=== PATIENT | male | born 1990 | race Caucasian/White ===

== ENCOUNTER 2019-03-21 11:51 | Emergency (ER) | payer OTHER ==
[~2019-03-21] VITALS: Ht 170.2 cm; Wt 74.8 kg
[2019-03-21 12:01] VITALS: Ht 170.2 cm; Wt 74.8 kg
[2019-03-21 13:24] VITALS: BP 134/70
== END 2019-03-21 13:24 | disposition home or self-care (01) ==
LOC: ED 11:51
DX: S61.411A Laceration without foreign body of right hand, initial encounter (principal); W26.8XXA Contact with other sharp object(s), not elsewhere classified, initial encounter; Y93.89 Activity, other specified; Y92.89 Other specified places as the place of occurrence of the external cause; Y99.8 Other external cause status
CPT/HCPCS: 90715; J2001

== ENCOUNTER 2019-03-30 13:49 | Emergency (ER) | payer OTHER ==
[~2019-03-30] VITALS: Ht 170.2 cm; Wt 75.7 kg
[2019-03-30 14:03] VITALS: Ht 170.2 cm; Wt 75.7 kg
[2019-03-30 14:52] VITALS: BP 158/51
== END 2019-03-30 14:52 | disposition home or self-care (01) ==
LOC: ED 13:49
DX: Z48.02 Encounter for removal of sutures (principal)